=== PATIENT | male | born 1975 | race Caucasian/White ===

== ENCOUNTER 2021-04-29 19:16 | Emergency (ER) | payer OTHER ==
[2021-04-29 19:22] VITALS: BP 150/93; PULSE 94; TEMP 98; BMI 30.5
[2021-04-29] MEDS ORDERED: DIPHTH,PERTUSS(ACELL),TET 0.5 ML DISP.SYRIN IM ONE ×2 (21:12→21:18)
== END 2021-04-29 21:28 | disposition home or self-care (01) ==
LOC: JERFT 19:16
PROC: 3E0234Z Introduction of Serum, Toxoid and Vaccine into Muscle, Percutaneous Approach (ICD-10-PCS; principal; 2021-04-29)
DX: S62.663B Nondisplaced fracture of distal phalanx of left middle finger, initial encounter for open fracture (principal); W23.0XXA Caught, crushed, jammed, or pinched between moving objects, initial encounter; Y92.9 Unspecified place or not applicable
CPT/HCPCS: 73130-TC-LT-FY; 73140-TC-LT-FY; 90471; 90715; 99284-25

== ENCOUNTER 2022-11-10 13:18 | Emergency (ER) | payer BC, OTHER ==
[2022-11-10 13:24] VITALS: BP 137/89; PULSE 92; RESP 18; TEMP 98; BMI 35.5
[2022-11-10] MEDS ORDERED: IBUPROFEN 600 MG TABLET (FP) PO ONE ×2 (13:56→13:58)
== END 2022-11-10 14:38 | disposition home or self-care (01) ==
LOC: JER 13:18 → JERFT 13:18
DX: M25.511 Pain in right shoulder (principal); W18.2XXA Fall in (into) shower or empty bathtub, initial encounter
CPT/HCPCS: 73000-TC-RT-FY; 73030-TC-RT-FY; 99283-25